=== PATIENT | male | born 1995 | race Caucasian/White ===

== ENCOUNTER 2021-12-20 20:16 | Emergency (ER) | payer OTHER ==
[2021-12-20 20:25] VITALS: BP 131/77
--- NOTE | 2021-12-20 20:57 | ED Physician Documentation ---
PD HPI UPPER EXT INJURY - Stated complaint Stated Complaint: L SHOULDER INJ - Chief complaint Chief Complaint: Trauma Ext - History obtained from History obtained from: Patient - Additonal information Additional information: Patient is a 26-year-old male with no significant past medical history presenting for evaluation of left shoulder injury. Patient was playing softball when another player ran into him. He fell onto the ground onto the left arm. He has pain to the left shoulder. He denies hitting his head or LOC. He has difficulty with moving the shoulder. He denies previous injuries to the site. He is right-hand dominant. He denies numbness. He does not take any medications including blood thinners. Review of Systems Constitutional: denies: Fever Nose: denies: Congestion Cardiac: denies: Chest pain / pressure Respiratory: denies: Dyspnea GI: denies: Abdominal Pain Musculoskeletal: reports: Joint pain Neurologic: denies: Head injury (Left shoulder) PD PAST MEDICAL HISTORY - Past Medical History Past Medical History: Yes Respiratory: Asthma - Past Surgical History Past Surgical History: No - Present Medications Home Medications: Ambulatory Orders Medication Instructions Recorded Confirmed HYDROcod/ACETAM 5/325 [[place] 5/325] 1 tab PO Q6H PRN #8 tablet 12/20/21 - Allergies Allergies/Adverse Reactions: Allergies Allergy/AdvReac Type Severity Reaction Status Date / Time No Known Drug Allergies Allergy Verified 12/20/21 20:24 - Social History Does the pt smoke?: No Smoking Status: Light tobacco smoker Does the pt drink ETOH?: Yes Does the pt have substance abuse?: Yes Substance Use and Type: Marijuana - Immunizations Immunizations are current?: Yes PD ED PE NORMAL - General General: Alert and oriented X 3, No acute distress, Well developed/nourished - HEENT HEENT: Atraumatic - Neck Neck: Supple, no meningeal sign, No bony TTP, C-Spine cleared by NEXUS criteria - Cardiac Cardiac: RRR, No murmur, Strong equal pulses - Respiratory Respiratory: No respiratory distress, Clear bilaterally - Derm Derm: Warm and dry - Extremities Extremities: No deformity, No edema, Other (Left shoulder tenderness, difficulty with range of motion, distal pulses intact, strong field support technician strength, sensation intact). No: No tenderness to palpate Results - Vitals Vitals: Vital Signs - 24 hr 12/20/21 20:21 Temperature 36.1 C L Heart Rate 86 Respiratory 14 Rate Blood Pressure 131/77 H O2 Saturation 98 Oxygen O2 Source Room air PD MEDICAL DECISION MAKING - ED course Complexity details: reviewed results, re-evaluated patient, d/w patient ED course: Patient is a 26-year-old male with a left shoulder injury. No signs of head injury. No clavicle tenderness. Shoulder x-ray obtained with no fracture or dislocation but evidence of sprain. Sling applied and discussed Plan of care with patient and family member at bedside. Patient is aware of need for follow- up if pain does not improve over the course of the next week.No injuries noted elsewhere. Departure - Departure Disposition: Home, Self Care Clinical Impression: Sprain of left shoulder Qualifiers: Encounter type: initial encounter Shoulder sprain type: unspecified sprain Qualified Code(s): S43.402A - Unspecified sprain of left shoulder joint, initial encounter Condition: Stable Instructions: ED Sprain AC Joint Prescriptions: HYDROcod/ACETAM 5/325 [[place] 5/325] 1 tab PO Q6H PRN #8 tablet PRN Reason: Pain Comments: You were evaluated for an injury to your left shoulder. Fortunately there is no fracture or dislocation but there are signs of a sprain into the joint. We have applied a sling as well as given you medications to help with the pain. Please Use ice 3-4 times a day to help ease any inflammation. You should also use the pain medication as needed. Please remove the sling several times a day and do small range of motion exercises with the left shoulder to prevent it from freezing. You can swing your arm [id number], side to side, and in circles in both directions to help Keep the shoulder joint loose. If your pain continues past a week then please Make an appointment to be seen by primary care doctor or orthopedic doctor for follow-up. Your prescriptions were sent to [facility]. I am prescribing a short course of narcotic pain medication for you. These are potentially dangerous and addictive medications that should be used carefully. These medications may constipate you. Take an rhbc-orx-cvwzluk stool softener (docusate) twice daily with plenty of water while taking these medications. If you go 24 hours without a bowel movement, take [id number] miralax, per package instructions. Do not drink or drive while taking these medications. If you received narcotic or sedating medications while in the emergency department, do not drive for 24 hours. Store this medication in a safe, secure place and out of reach of children. It is a violation of federal law to give or sell this medication to another person or to use in a manner other than prescribed. The ED will not refill narcotic prescriptions, including prescriptions lost or stolen. To dispose of unwanted medications: 1. [facility] at [address] in [place] has a medication drop box. They accept prescription medications (in pill form) Saturday through Saturday 9:00 a.m. to 5:00 p.m. 2. The [facility] [employer] accepts prescription medications (in pill form only) for disposal year round. Call for more information. 3. Contact the [facility] for the next [facility] sponsored prescription drug collection event. , [phone], or [phone]; Note that many narcotic pain relievers also contain Tylenol/acetaminophen. Please ensure that your total dose of acetaminophen from all sources does not exceed 3 g (3000 mg) per day. IMPRESSION: 1. No fracture identified. 2. Mild incongruence of the acromioclavicular joint suggestive of a mild sprain. Discharge Date/Time: 12/20/21 22:04
--- NOTE | 2021-12-20 21:37 | XRAY Report ---
PROCEDURE: Shoulder 3 View LT INDICATIONS: injury TECHNIQUE: 3 views of the shoulder were acquired. COMPARISON: None. FINDINGS: Bones: No fractures or dislocations. The acromioclavicular joint is mildly incongruent suggestive o f a mild sprain. No suspicious bony lesions. Visualized ribs appear intact. Soft tissues: No suspicious soft tissue calcifications. IMPRESSION: 1. No fracture identified. 2. Mild incongruence of the acromioclavicular joint suggestive of a mild sprain. Reviewed by: Christophe Maciel MD on 12/20/2021 9:35 PM PDT Approved by: Christophe Maciel MD on 12/20/2021 9:35 PM PDT Station ID: [id number]
[2021-12-20] MEDS: LIDOCAINE PATCH 5% TOP STA (21:39)
[2021-12-20] MEDS: HYDROcod/ACETAM 5/325 MG TABLET PO STA (21:39)
[2021-12-20] MEDS: HYDROcod/ACET 5/325 Prepack 4 PO STA (22:03)
== END 2021-12-20 22:04 | disposition home or self-care (01) ==
LOC: ED 20:16
DX: S43.402A Unspecified sprain of left shoulder joint, initial encounter (principal); W50.0XXA Accidental hit or strike by another person, initial encounter; Y93.64 Activity, baseball
CPT/HCPCS: 73030; 99282; 99283; A9270